=== PATIENT | female | born 1975 | race Two or more races ===

== ENCOUNTER → 2019-10-07 12:19 | Outpatient (CLI) | payer OTHER, SELFPAY ==
[2019-10-07 12:15] VITALS: BMI 30.4
--- NOTE | 2019-10-07 12:20 | RAD_ITS ---
STUDY: X-RAY - UNILATERAL RIBS ( LEFT ) WITH CHEST REASON FOR EXAM: Female, 44 years old. FELL THIS MORNING IN PARKING LOT AND LANDED ON LEFT LATERAL RIBS . PAIN JUST BENEATH LEFT BREAST AND RADIATES AROUND SIDE TO BACK. TECHNIQUE - RIBS: 4 view(s) of the ribs. TECHNIQUE - CHEST: Single PA view of the chest. COMPARISON: None. FINDINGS - RIBS: Normal visualized ribs without a demonstrated fracture. FINDINGS - CHEST: The lungs are clear and expanded. There is no demonstrated pleural abnormality. Normal size heart. Normal mediastinum and devaughn. Normal visualized pulmonary arteries. Normal visualized aortic arch and descending thoracic aorta. Normal visualized thoracic spine. Normal visualized ribs, clavicles, and shoulders. There is no demonstrated abnormality of the visualized soft tissue structures of the upper abdomen. RAD/Ribs Uni Min 3V w/PA Chest IMPRESSION: RIBS: Normal x-ray examination of the ribs. CHEST: Normal x-ray examination of the chest. Electronically Signed: Eyad Pelayo, at 15:35 EDT , Service support ,
== END ==
PROVIDERS: Referring Provider Physician Assistant Surgical; Visit Provider Physician Assistant Surgical
DX: S20.212A Contusion of left front wall of thorax, initial encounter (principal)
CPT/HCPCS: 71101

== ENCOUNTER 2022-03-30 14:30 | Outpatient (RCR) | payer OTHER, SELFPAY ==
--- NOTE | 2022-03-02 15:44 | HP.OTEVAL_ITS ---
Patient's Visit Information CADENCE TENORIO is a 46 year old F, referred to Occupational Therapy by PALOMO Hanks, with a diagnosis of right lateral epi.. Date of Evaluation: 03/02/22 Occupational Therapist: Korina Harrington, EUGENE/Starr, CHT - Subjective This 46 year old female was seen for OT eval with dx of right lateral epicondylitis. pt states pain started in 2021. pt states she tried not to use it when she could. Pt states she did use a counter brace on and off for several weeks, and now has a compression sleeve which she feels does help. pt is right handed this pain limits her from doing situational things for ADLs and IADLs. pt works for [employer] [place]. Pt states she noticed most pain with reaching into file system to get large file folders. pt is currently still working. Pt is the Director of HR. pt would like to return to her PLOF. pt states she just finished a 6 days steroid pack and is feeling better. - ADLs Dressing: Pants, Socks Fasteners: Tie shoes Kitchen: Pour from pitcher, Lift saucepan, Take dish out of oven Comments: reaching out in front for items - Pain Right Elbow 0 Pain Intensity Range: 6 - ROM Elbow: right 0/140 left 0/150 Forearm: right/left WNL Wrist: right 60 pain with ext /65 left 70/70 ROM Comments: pt demo with limited ROM of wrist ROM and pain with wrist ex. - Strength Automotive Engineering Technician: right 25# elbow straight 20# left 60# with elbow straight 65# Lateral Pinch: right 4# left 10# Tripod Pinch: right 6# left 12# - Special Tests Lat Epiconylitis - as named: positive right - Quick DASH-Disab of Arm,Shoulder& Hand Quick DASH Score: 35.0000 - Tennis Elbow Tennis Elbow Score: 55 - Goals Goal:100% adherence to protocol: Yes Comment: conservative lateral epicondylitis guidelines Goal:ROM equal to unaffected hand: Yes Goal:Automotive Engineering Technician/Pinch strength at least 75% of unaffected hand: Yes Goal:No pain with affected hand use: Yes Goal:Full use of affected hand in daily activities including: Yes - Rehabilitation General Assessment: pt demo with right lateral epicondylitis limiting her IND with ADLs and IADLS. pt would benefit from skilled OT services 3x week for 4-6 weeks. Today therapist ed. pt on dx. recovery- lateral epi precautions, use of bracing and later eip POC. pt demo understanding and agree to POC. Rehabilitation Potential: Good - Anticipated Interventions A/AAROM/PROM, Strengthening, Triggerpoint Release, Modalities, Orthoses, Joint Protection/Energy Conservation, Home Program - Visit Plan Frequency: 2-3x /Week Duration: 4 Weeks TEXT: Thank you for the opportunity to evaluate your patient. For Medicare and Medicare HMO plans, please review the plan of care and approve it. It will need to be FAXED BACK to us at [phone] for Medicare purposes. Please let me know if there are questions or concerns regarding this plan of care. Physician Signature: Date:
--- NOTE | 2022-04-01 11:47 | HP.OTREVAL ---
PALOMO Hanks, It has been my pleasure to treat CADENCE TENORIO over the last 12 visits for right lateral epi.. Please see the progress note below for an update on the occupational therapy plan of care! Subjective: pt states she is doing ok- is not making increase gains-. pt was seen for 12 OT sessions with no significant change in symptoms- and is now getting burring sensation down forearm and numbness in LF and RF- Objective/Function: right outside industrial sales representative strength elbow at 90* 25#. right outside industrial sales representative strength elbow straight 20#. therapist advised pt to return to for further assessment. advised to use wrist brace and decrease use of counter force due to nerve symptoms- pt demo understanding. Plan Frequency: 2-3x /Week Duration: 4 Weeks Visits in this POC: 4 weeks (2-3x week) Plan: return to Goals - Goals Patient Goals: Decrease Pain, Use Hand/Wrist/Arm Normally Again Goal:100% adherence to protocol: Yes Goal:ROM equal to unaffected hand: Yes Goal:Founder Chairman And Chief Creative Officer/Pinch strength at least 75% of unaffected hand: Yes Goal:No pain with affected hand use: Yes Goal:Full use of affected hand in daily activities including: Yes Anticipated Interventions Anticipated Interventions: A/AAROM/PROM, Strengthening, Triggerpoint Release, Modalities, Orthoses, Joint Protection/Energy Conservation, Home Program Please do not hesitate to contact me at [phone] by phone or if you have questions or concerns regarding this new plan of care! Sincerely, Korina Harrington, OTR/L, CHT
--- NOTE | 2022-05-25 15:16 | HP.OTDCSUM ---
It has been my pleasure to treat CADENCE TENROIO under orders from PALOMO Hanks, for the diagnosis of right lateral epi. for a total of 12 visit(s). Please see the following information for a summary of their discharge status. % Improvement: 80 Objective/Function: right professor of mathematics strength elbow at 90* 25#. right professor of mathematics strength elbow straight 20#. therapist advised pt to return to for further assessment. advised to use wrist brace and decrease use of counter force due to nerve symptoms- pt demo understanding. Patient Goals: Decrease Pain, Use Hand/Wrist/Arm Normally Again Goal:100% adherence to protocol: Yes Goal:ROM equal to unaffected hand: Yes Goal:Parole Supervisor/Pinch strength at least 75% of unaffected hand: Yes Goal:No pain with affected hand use: Yes Goal:Full use of affected hand in daily activities including: Yes Plan: return to [facility]Mode If there are questions or concerns regarding this patient's occupational therapy, please fell free to call me at [phone]. Thank you for the referral of this patient. Sincerely, Korina Harrington, OTR/L, CHT
== END 2022-03-30 19:00 | disposition home or self-care (01) ==
LOC: OT 14:30
PROVIDERS: PCP Nurse Practitioner Primary Care; Referring Provider Physician Assistant Surgical; Visit Provider Physician Assistant Surgical
DX: M77.11 Lateral epicondylitis, right elbow (principal)
CPT/HCPCS: 97035; 97110; 97140; 97166